=== PATIENT | female | born 1995 | race Hispanic/Latino ===

== ENCOUNTER 2018-06-01 21:21 | Emergency (ER) | payer OTHER ==
[2018-06-01] MEDS ORDERED: ASPIRIN 325 MG TABLET ONE (21:32)
[2018-06-01 21:41] LABS: BASOPHILS % (AUTO) 0.3 % (0.0-5.0); EOSINOPHILS % (AUTO) 0.4 % (0.0-8.0); HEMATOCRIT 41.6 % (36-48); LYMPHOCYTES % (AUTO) 28.9 % (21.0-51.0); MEAN CORPUSCULAR HEMOGLOBIN 29.9 pg (27.0-33.0); MEAN CORPUSCULAR HGB CONC 34.2 g/dL (32.0-36.0); MEAN CORPUSCULAR VOLUME 87.3 fL (80-100); MONOCYTES % (AUTO) 6.9 % (3.0-13.0); NEUTROPHILS % (AUTO) 63.5 % (40.0-77.0); PLATELET COUNT (AUTO) 239 K/uL (130-400); RED BLOOD CELL COUNT(AUTO) 4.76 MIL/uL (4.00-5.50); RED CELL DISTRIBUTION WIDTH 13.4 % (11.0-15.5)
[2018-06-01 21:50] LABS: CREATININE 0.8 mg/dL (0.5-1.5); POTASSIUM 3.3 mmol/L (3.5-5.1)
[2018-06-01 21:56] LABS: INR 0.89 (0.85-1.15); PROTHROMBIN TIME 9.4 SEC (9.6-11.6)
[2018-06-01 21:59] LABS: APPEARANCE,URINE Clear (CLEAR); BILIRUBIN,URINE Negative (NEGATIVE); COLOR,URINE Yellow (YELLOW); GLUCOSE, URINE (UA) Negative (NEGATIVE); KETONES,URINE Negative (NEGATIVE); LEUKOCYTE ESTERASE ,URINE Negative (NEGATIVE); NITRATE,URINE Negative (NEGATIVE); OCCULT BLOOD,URINE Small (NEGATIVE); PH,URINE 7.5 (5.0-8.0); PROTEIN,URINE Negative (NEGATIVE); UROBILINOGEN,URINE 0.2 mg/dL (0.2-1.0)
[2018-06-01 22:00] LABS: HCG,QUAL RESULT NEGATIVE (NEGATIVE)
[2018-06-01 22:00] LABS: ALBUMIN 3.7 g/dL (3.5-5.0); BILIRUBIN,TOTAL 0.2 mg/dL (0.2-1.0)
[2018-06-01 22:06] LABS: BACTERIA,URINE Rare /HPF (None Seen); SQUAMOUS EPITHELIAL CELL,UR Few /HPF (0-2); TRANSITIONAL EPI CELLS,URINE Rare /HPF (None Seen); WBC,URINE 0-1 /HPF (0-1)
[2018-06-01] MEDS ORDERED: DiphenhydrAMINE HCL 50 MG/ML VIAL ONE (22:18)
[2018-06-01] MEDS ORDERED: FAMOTIDINE/PF 20 MG/2 ML VIAL IV ONE (22:18)
[2018-06-01] MEDS ORDERED: LORATADINE 10 MG TABLET ONE (22:31)
== END 2018-06-02 01:02 | disposition home or self-care (01) ==
LOC: EDBD 21:21 → EDH 21:21
DX: R07.89 Other chest pain (principal); R00.2 Palpitations; R21 Rash and other nonspecific skin eruption
CPT/HCPCS: 36415; 71045; 80053; 81001; 81025; 82550; 83874; 84484; 85025; 85610; 85730; 93005; 94761; 96365; 96375; 99291; J1200; J3490